=== PATIENT | male | born 1960 | race Caucasian/White ===

== ENCOUNTER → 2024-03-21 06:36 | Outpatient (REF) | payer OTHER, SELFPAY | LOC: MRI 06:36 | PROVIDERS: FAMILY PHYSICIAN Physician Assistant | DX: M10.079 Idiopathic gout, unspecified ankle and foot (principal) | CPT/HCPCS: 73721 ==

== ENCOUNTER → 2025-01-29 15:19 | Outpatient (REF) | payer OTHER, SELFPAY | LOC: RAD 15:19 | PROVIDERS: ATTENDING PHYSICIAN Physician Assistant Medical | DX: M25.561 Pain in right knee (principal) | CPT/HCPCS: 73564 ==